=== PATIENT | male | born 1935 | race Caucasian/White ===

== ENCOUNTER 2018-04-02 19:35 | Inpatient (IN) | payer MEDICARE, OTHER ==
[2018-04-02] MEDS ORDERED: NS 0.9% 1000 ML* 1,000 ML IV ONE (19:51)
--- NOTE | 2018-04-02 20:02 | ED ---
GI/ HPI - HPI Summary HPI Summary: This patient is an 82 year old M presenting to [facility] with a chief complaint of rectal bleeding since 6 hours ago. The patient has had 3 episodes of heavy bleeding he is still leaking blood. He states he has had minor rectal bleeds in the past but not to this extent. He experienced syncope while his was driving him back from [place]. He also experienced syncope in triage. He reports weakness, chills, some dizziness. He has history of NE and has a stent placed. He takes 25 mg of metoprolol and 162 mg Aspirin daily. 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 - Onset/Duration: Started Hours Ago Timing: Intermittent Severity: Mild Current Severity: Mild Pain Intensity: 0 Associated Signs and Symptoms: Positive: Pallor, Dizziness, Weakness, Syncope, Bright Red Blood w/Stool, Blood w/Stool Aggravating Factor(s): Nothing Alleviating Factor(s): Nothing - Risk Factors GI Bleed Risk Factor(s): ASA - Allergy/Home Medications Allergies/Adverse Reactions: Allergies Allergy/AdvReac Type Severity Reaction Status Date / Time MS Penicillins [Penicillins] Allergy Severe Itching Verified 01/12/17 14:11 PMH/Surg Hx/FS Hx/Imm Hx Endocrine/Hematology History: Denies: Hx Diabetes Cardiovascular History: Reports: Hx Myocardial Infarction Denies: Hx Hypertension, Hx Pacemaker/ICD History: Denies: Hx Renal Disease Sensory History: Denies: Hx Hearing Aid Psychiatric History: Denies: Hx Panic Disorder - Surgical History Surgery Procedure, Year, and Place: CATARACTS - DIMITRIOS. CARDIAC STENTS - Infectious Disease History: No Infectious Disease History: Denies: Traveled Outside the [place] in Last 30 Days - Family History Known Family History: Positive: Cardiac Disease - Social History Alcohol Use: Daily Substance Use Type: Reports: None Review of Systems Positive: Chills Positive: other - Rectal bleed Positive: Weakness, Syncope All Other Systems Reviewed And Are Negative: Yes Physical Exam - Summary Physical Exam Summary: VITAL SIGNS: Reviewed. GENERAL: Patient is a well-developed and nourished MALE who is lying comfortable in the stretcher. Patient is not in any acute respiratory distress. HEAD AND FACE: No signs of trauma. No ecchymosis, hematomas or skull depressions. No sinus tenderness. EYES: PERRLA, EOMI x 2, No injected conjunctiva, no nystagmus. EARS: Hearing grossly intact. Ear canals and tympanic membranes are within normal limits. MOUTH: Oropharynx within normal limits. NECK: Supple, trachea is midline, no adenopathy, no JVD, no carotid bruit, no c- spine tenderness, neck with full ROM. CHEST: Symmetric, no tenderness at palpation LUNGS: Clear to auscultation bilaterally. No wheezing or crackles. CVS: Regular rate and rhythm, S1 and S2 present, no murmurs or gallops appreciated. ABDOMEN: Soft, non-tender. No signs of distention. No rebound no guarding, and no masses palpated. Bowel sounds are normal. EXTREMITIES: FROM in all major joints, no edema, no cyanosis or clubbing. NEURO: Alert and oriented x 3. No acute neurological deficits. Speech is normal and follows commands. SKIN: Dry and warm. Pale. RECTAL: Maroon colored blood on examining finger. No active bleed. No masses. Triage Information Reviewed: Yes Vital Signs On Initial Exam: Initial Vitals Temp Pulse Resp BP Pulse Ox 96.7 F 99 18 129/74 100 04/02/18 19:38 04/02/18 19:38 04/02/18 19:38 04/02/18 19:38 04/02/18 19:38 Vital Signs Reviewed: Yes Diagnostics - Vital Signs Vital Signs Temp Pulse Resp BP Pulse Ox 04/02/18 19:38 96.7 F 99 18 129/74 100 - Laboratory Result Diagrams: 04/02/18 20:01 04/02/18 20:01 Lab Statement: Any lab studies that have been ordered have been reviewed, and results considered in the medical decision making process. - Radiology CXR Radiology Interpretation Completed By: ED Physician Summary of Radiographic Findings: No acute process. Pending official radiologist report. - EKG 2009 Cardiac Rate: Bradycardia EKG Rhythm: Sinus Bradycardia - 48 BPM Summary of EKG Findings: J-point elevation. No ischemic changes. GIGU Course/Dx - Course Course Of Treatment: This patient is an 82 year old M presenting to [facility] with a chief complaint of rectal bleeding since 6 hours ago. Physical exam revealed maroon blood in the rectum. EKG showed sinus bradycardia and J-point elevation and Chest X-ray were unremarkable for cardiopulmonary problems. Stephany Gresham, Hospitalist was consulted and she accepted the patient to be admitted. This plan was discussed with the patient and he was agreeable with this plan. [facility] [id number]. - Diagnoses Provider Diagnoses: Rectal bleed, Lower GI bleed - Physician Notifications Discussed Care Of Patient With: Stephany Gresham - Hospitalist Instructed by Provider To: Admit As Inpatient Discharge - Sign-Out/Discharge Documenting (check all that apply): Patient Departure - Admit - Discharge Plan Condition: Stable Disposition: ADMITTED TO [facility] Referrals: Linda Amos MD [Primary Care Provider] - - Attestation Statements Document Initiated by Scribe: Yes Documenting Scribe: Demian Gonzalez Provider For Whom Forrest is Documenting (Include Credential): Robert Aggarwal MD Scribe Attestation: Demian De Jesus scribed for Robert Aggarwal MD on 04/02/18 at 2039. Status of Scribe Document: Ready
[2018-04-02 20:15] LABS: ABS Basophils 0 10^3/ul (0-0.2); ABS Eosinophils 0.1 10^3/ul (0-0.6); ABS Lymphocytes 1.2 10^3/ul (1.0-4.8); ABS Monocytes 0.7 10^3/ul (0-0.8); ABS Neutrophils 10.9 10^3/ul (1.5-7.7); ABS Nucleated RBC 0 10^3/ul; Hematocrit 39 % (42-52); Lymphocyte % 9.4 %; Mean Corpuscular HGB Conc 33 g/dl (31-36); Mean Corpuscular Hemoglobin 32 pg (27-31); Mean Corpuscular Volume 96 fL (80-94); Mean Platelet Volume 7.7 fL (7.4-10.4); Nucleated Red Blood Cells % 0; Platelet Count 262 10^3/ul (150-450); Red Blood Count 4.07 10^6/ul (4.00-5.40); Red Cell Distribution Width 13 % (10.5-15); White Blood Count 13.1 10^3/ul (3.5-10.8)
[2018-04-02 20:28] LABS: Activated Partial Thrombo Time 30.2 seconds (26.0-36.3)
[2018-04-02 20:31] LABS: Albumin 3.6 g/dL (3.2-5.2); Albumin/Globulin Ratio 1.6 (1-3); BUN/Creatinine Ratio 22.1 (8-20); Calcium 8.8 mg/dL (8.6-10.3); EGFR Non-African American 50.3 (>60); Globulin 2.3 g/dL (2-4); Potassium 4.6 mmol/L (3.5-5.0); Total Bilirubin 0.5 mg/dL (0.2-1.0); Total Protein 5.9 g/dL (6.4-8.9)
[2018-04-02] MEDS ORDERED: Acetaminophen TAB* 325 MG PO PRN (20:43)
[2018-04-02] MEDS: NS 0.9% 1000 ML* 1,000 ML IV SCH (21:42)
--- NOTE | 2018-04-02 21:56 | ADMNOTE ---
Subjective Date of Service: 04/02/18 Interval History: code status full this is admission h/p source from surrogate/hcp hpi this is a 82 yr old wm with hx of cad with one stent on asa 162 was brought in to hospital after he had three episodes of brbpr. pt was at his daughter's house when the first episode occurred ---> pt declined to go to any hospitals in [facility] and decided to bring him back. he had an episode of briefly loc in the car ---> called on his name with no response ---> pulled to roadside and tapped on his chest ---> responded in that way---> similar episode recurred when he was in the triage. pt knows he is in a hospital but was wrong reg the yr/month on initial encounter. his intial hg was 13 trop was neg ekg showed non specific st t changes seen on prior ekg. 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 ( pt says his chest pain has been epigastric intermittantly for the past few days. pt has at least mild dementia and did not complain chest pain initially on admission. not sure he is a good historian when is not around. is the hcp and surrogate ) pt was transferred to icu for further monitering. his repeat hg down to 9.5 and trop went to 32 at 530 am ---> was called reg this close to 6 am. called cardio still await for their response. called gi Dr Al will do a flex sig ( two tap water enema ordered to be given ) while full colonoscopy with possible need for nj to feed laxative later ( Dr Al will sign out to day MANUEL he reg this ) was informed reg the above and called in daughter from [place]. 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 dad at age of 60 due to kidney ca mom + mi at age late 60s Review of Systems - Measurements Intake and Output: Intake and Output Last 24 Hours 03/31/18 04/01/18 04/02/18 04/03/18 06:59 06:59 06:59 06:59 Intake Total 1000 Balance 1000 Weight 135 lb Intake: IV Fluids 1000 - Review of Systems General Comments: pertinent as per hpi Objective Active Medications: Acetaminophen (Tylenol Tab*) 650 mg PO Q4H PRN PRN Reason: FEVER/PAIN Atorvastatin Calcium (Lipitor*) 20 mg PO 2100 ROSE Cyanocobalamin (Vitamin B12 Tab*) 1,000 mcg PO DAILY ROSE Sodium Chloride (Ns 0.9% 1000 Ml*) 1,000 mls @ 100 mls/hr IV PER RATE ROSE Last Admin: 04/02/18 21:42 Dose: 100 mls/hr Metoprolol Succinate (Toprol Xl Tab*) 12.5 mg PO DAILY ROSE Pantoprazole Sodium (Protonix Iv*) 40 mg IV Q24H ROSE Vital Signs - 8 hr 04/02/18 04/02/18 04/02/18 19:38 20:02 20:04 Temperature 96.7 F Pulse Rate 99 57 54 Respiratory 18 19 23 Rate Blood Pressure 129/74 182/72 (mmHg) O2 Sat by Pulse 100 100 100 Oximetry 04/02/18 04/02/18 04/02/18 20:34 21:00 21:03 Temperature Pulse Rate 46 174 83 Respiratory 17 19 20 Rate Blood Pressure 110/59 138/74 (mmHg) O2 Sat by Pulse 100 84 91 Oximetry 04/02/18 21:33 Temperature Pulse Rate 66 Respiratory 19 Rate Blood Pressure 137/67 (mmHg) O2 Sat by Pulse 95 Oximetry Oxygen Devices in Use Now: None Appearance: in mild distress Eyes: No Scleral Icterus, PERRLA Ears/Nose/Mouth/Throat: NL Teeth, Lips, Gums, Clear Oropharnyx, Mucous Membranes Moist Neck: NL Appearance and Movements; NL JVP, Trachea Midline, No Thyroid Enlargement, Masses Respiratory: Symmetrical Chest Expansion and Respiratory Effort, Clear to Auscultation Cardiovascular: NL Sounds; No Murmurs; No JVD, RRR, - - no anterior chest tenderness upon pressure Abdominal: NL Sounds; No Tenderness; No Distention Extremities: No Edema, - - able to raise ue and le against gravity b/l Skin: No Rash or Ulcers, - - pale looking Neurological: - - awake disoriented cranial n 2-12 grossly intact motor ue/le b/ l 5/5 sensory ue/le 2/2 plantar reflex downwards Result Diagrams: 04/03/18 05:30 04/03/18 05:30 EKG Data: ekg ns st - t elevation mi anterior leads Assess/Plan/Problems-Billing Assessment: 82 yr old wm with hx of cad mild to mod dementia on only asa 162 daily was brought into er due to brbpr for one day hx. pt was found to have st t elevation mi with trop went from 0---> 3.5--->13.5--->32 as of 530 am despite of medical therpay with iv lopressor and nitropaste. his hg went from 13-->12--- >9.6 at 530 am - Patient Problems (1) Additional heart attack (anterolateral wall) Current Visit: Yes Status: Acute Code(s): I21.09 - STEMI INVOLVING OTH CORONARY ARTERY OF ANTERIOR WALL SNOMED Code(s): 14197917 Comment: pt has st t elevation mi on the anterior leads but unable to have cath due to concurrent lower gib - cardio eval greatly appreciated - on lopressor and nitro - on home asa 162 ( had one dose prior to admission ) but not on asa here - risks of severe mi/arrythemia d/w who is the hcp (2) Lower GI bleed Current Visit: Yes Status: Acute Code(s): K92.2 - GASTROINTESTINAL HEMORRHAGE, UNSPECIFIED SNOMED Code(s): 91683168 Comment: gi service greatly appreciated flex sig planned this am may move to full colonoscopy if non diagnostic trend h/h (3) Dementia Current Visit: Yes Status: Acute Code(s): F03.90 - UNSPECIFIED DEMENTIA WITHOUT BEHAVIORAL DISTURBANCE SNOMED Code(s): 12837402 Comment: mild to mod so far slight agitated could be related to his medical condition supportive care (4) Hyperlipidemia Current Visit: Yes Status: Acute Code(s): E78.5 - HYPERLIPIDEMIA, UNSPECIFIED SNOMED Code(s): 70821314 Comment: lft wnl ck fasting lipid (5) SIRS (systemic inflammatory response syndrome) Current Visit: Yes Status: Acute Code(s): R65.10 - SIRS OF NON-INFECTIOUS ORIGIN W/O ACUTE ORGAN DYSFUNCTION SNOMED Code(s): 875440301 Comment: elevated wbc but not on inital wbc ---> that could be related to his massive mi no abx yet (6) Acute anemia Current Visit: Yes Status: Acute Code(s): D64.9 - ANEMIA, UNSPECIFIED SNOMED Code(s): 008534275 Comment: related to his lgib but his hg at 530 am is still 9.6 (7) DVT prophylaxis Current Visit: Yes Status: Acute Code(s): VDS6488 - SNOMED Code(s): 566185954 Comment: scd
[2018-04-02] MEDS: Pantoprazole IV* 40 MG IV SCH (23:18)
[2018-04-02] MEDS ORDERED: Iodixanol* (CONTRAST) 320 MG/ML 100 ML SDV IV ONE (23:38)
[2018-04-03 00:28] LABS: Urine Appearance Clear; Urine Bilirubin Negative (Negative); Urine Blood Negative (Negative); Urine Color Straw; Urine Glucose 1+(50 mg/dL) (Negative); Urine Ketones 1+ (Negative); Urine Nitrite Negative (Negative); Urine Protein Negative (Negative); Urine Specific Gravity 1.013 (1.010-1.030); Urine Urobilinogen Negative (Negative)
[2018-04-03 02:59] LABS: Hematocrit 35 % (42-52)
[2018-04-03] MEDS ORDERED: Nitroglycerin 2% OINT* 1 GM PAK TOPICAL STA (03:27)
[2018-04-03] MEDS ORDERED: Nitroglycerin 2% OINT* 1 GM PAK ONE (03:28)
[2018-04-03] MEDS ORDERED: Metoprolol Tartrate IV* 1 MG/ML 5 ML VIAL IV STA (03:39)
[2018-04-03] MEDS ORDERED: PEG 3000 GI LAVAGE* 1 GALLON PO ONE (04:07)
[2018-04-03] MEDS: Nitroglycerin 2% OINT* 1 GM PAK TOPICAL SCH ×2 (04:13→11:44)
[2018-04-03] MEDS ORDERED: Metoprolol Tartrate IV* 1 MG/ML 5 ML VIAL IV ONE (04:29)
[2018-04-03] MEDS ORDERED: Metoprolol Tartrate IV* 1 MG/ML 5 ML VIAL ONE (04:39)
[2018-04-03 05:42] LABS: ABS Basophils 0 10^3/ul (0-0.2); ABS Eosinophils 0 10^3/ul (0-0.6); ABS Lymphocytes 0.6 10^3/ul (1.0-4.8); ABS Monocytes 0.7 10^3/ul (0-0.8); ABS Neutrophils 13.1 10^3/ul (1.5-7.7); ABS Nucleated RBC 0 10^3/ul; Eosinophil % 0 %; Hematocrit 29 % (42-52); Hemoglobin 9.6 g/dl (14.0-18.0); Lymphocyte % 3.9 %; Mean Corpuscular HGB Conc 33 g/dl (31-36); Mean Corpuscular Hemoglobin 32 pg (27-31); Mean Corpuscular Volume 97 fL (80-94); Mean Platelet Volume 7.8 fL (7.4-10.4); Nucleated Red Blood Cells % 0.1; Platelet Count 196 10^3/ul (150-450); Red Cell Distribution Width 13 % (10.5-15); White Blood Count 14.4 10^3/ul (3.5-10.8)
[2018-04-03 05:58] LABS: BUN/Creatinine Ratio 23.3 (8-20); Calcium 6.6 mg/dL (8.6-10.3); HDL Cholesterol 34.5 mg/dL; Potassium 3.4 mmol/L (3.5-5.0)
[2018-04-03 06:29] LABS: TSH (Thyroid Stimulating Horm) 0.48 mcIU/mL (0.34-5.60)
[2018-04-03 06:31] LABS: Free T4 1.04 ng/dL (0.61-1.12)
[2018-04-03] MEDS ORDERED: Calcium Gluconate INJ* 1 GM in NS 0.9% 50 ML* 50 ML IVPB ONE (07:05)
--- NOTE | 2018-04-03 07:09 | CONS ---
CC: Dr. Mckeon; Dr. Ashby. CARDIOLOGY CONSULTATION: DATE OF CONSULT: 04/03/18. CONSULTING PROVIDER: Dr. Stephany Gresham. REASON FOR EVALUATION: STEMI. HISTORY OF PRESENT ILLNESS: I was asked to see Mr Jo on an urgent basis by Dr. Gresham. He was admitted because of new onset GI bleeding yesterday. He apparently was at a family event and noted that his pants were wet and was found to have bright red blood. His decided to drive him home. On the way home, he apparently lost consciousness twice but was easily arousable with her twice. He was brought to the emergency room and initially had an EKG that showed that showed sinus bradycardia with no acute injuries. He was admitted to the [facility] and apparently had troponins checked. A troponin was added on to the 2105 sample which 0.0. A repeat troponin at 1:21 was 3.68, at 2:51 was 13.31. He had a repeat EKG obtained at 2:[address] elevations anteriorly and new Q waves in V1 through V3. He also had recurrent bright red blood per rectum. The patient has mild memory impairment and is a poor historian. When I saw him, he did admit to having some substernal chest pressure, but he said it has been coming and going for some time. He made it sound as though has been several days but he had not told his about it. He was given nitroglycerin paste 1 inch and also IV Lopressor 5 mg and thought that he had some improvement in his discomfort. A repeat EKG was obtained, at 3 :45 which showed minimal improvement in ST elevations. PAST MEDICAL HISTORY: CAD NH in 1988 and he had a 90% right coronary stenosis only, which was treated with angioplasty. PCI of LAD and LCX 2003, and and subsequent Brachytherapy 2004 to LAD hypertension previous coronary disease with remote stenting many years ago in [place] according to the patient. He denies diabetes. history of tobacco use, discontinued 30 years ago. GI bleeding back in 2010, had a colonoscopy back then for rectal bleeding. 05/24/10 did reveal 2+ diverticulosis with large diverticula without any haustral changes. He had a small polypoid nodule removed, had 2+ diverticulosis , a 2 to 3 cm nodule was noted in the cecal cap and removed and it was felt that the impression was moderate left colon diverticulosis without any haustral changes, polypoid nodules, internal hemorrhoids, mild bright red blood which seem to fit internal hemorrhoids. upper GI series on 01/03/18 for dysphagia and was found to have a small Zenker' s diverticulum unremarkable upper GI. He apparently had had stenting in 2003 to the LAD and circumflex. cardiac catheterization on 07/04/04. Because of increasing angina and anterior wall ischemia, he had a repeat CATH. 80% restenosis within the mid LAD and mild diffuse in-stent restenosis within the stent. The left circumflex was without evidence of stenosis, the ramus was patent and the right coronary artery was not injected, it was known to be occluded at the prior catheterization. He was scheduled for radiation therapy to the LAD restenosis subsequently, although I do not have those results. prostatic hyperplasia, bladder outlet, urethral dilatation, and TURP in June 2006. past medical history based on his records from 12/09/03 reports: atrial fibrillation in 1993, he had a normal echocardiogram, TSH at that time by report. PAST SURGICAL HISTORY: Back then included right cataract in 1998, left cataract in 2000, April 1993 atrial fibrillation, and the NH in 1988. ALLERGIES: Include PENICILLIN with a rash, SULFA with fever in 1992, but tolerated in 2002; PAXIL with decreased sexual drive. He has a history of tobacco use, discontinued in 1973. He is a retired banker. He is . He has a son and a daughter. He just came back visiting his children in [place]. FAMILY HISTORY: Includes a brother who had heart disease and had bypass surgery. Mother at age 64. His father of prostate cancer at 55. PHYSICAL EXAM: On physical exam, he is a well developed, well nourished gentleman, in no apparent distress, atraumatic, normocephalic. Extraocular muscles are intact. Sclera anicteric. Pulse of 94, blood pressure of 142/82, no significant JVD, carotids 2+ without bruits. Cardiac exam: S1 and S2 with a 2/6 systolic ejection murmur at the base, S3 gallop and 2/6 holosystolic murmur at the apex. Chest was clear, no CVAT. Abdomen: Bowel sounds present, non-tender. No hepatosplenomegaly. Femoral pulses intact with left femoral bruits. Distal pulses, posterior tibialis present, dorsalis pedis were diminished. He knew he was in hospital. He knew the date, but not the year. DIAGNOSTIC STUDIES/LAB DATA: Sodium 139, potassium 4.6, BUN of 30, creatinine 1.36, lactic acid 2.7 and 2.3 and troponins, first troponin at 1999 was 0, second troponin at 1:21 was 3.68 and a third at 2:51 was 13.31. The lactic acid was 2.7 at 2100 and 2.3 at 1:21. White count 12.1, hemoglobin 13, hematocrit 39 at 2000, and 2:51 a.m. on 04/03/18 hemoglobin was 12, hematocrit was 35, EKGs were described as above. Chest x-ray is pending. CT of the abdomen from 04/02/18 revealed no acute findings. No hydronephrosis. Evidence of prior granulomatous disease, limited by motion. IMPRESSION AND PLAN: My impression is that Mr. Jo appears to be having acute anterior myocardial infarction in the setting of a gastrointestinal bleed. I have discussed the case at length with him, his at the bedside and Dr. Gresham. I also spoken to Dr. Singh of Interventional Cardiology and Dr. Ashby of GI. The patient is in a very high risk medical situation with poor prognosis given concomitant GI bleeding of unknown etiology as well as acute NH. He is at high risk for cardiac morbidity, mortality in the next few hours and it was discussed with his . However, we have limited medical options and interventional options due to his GI bleeding. For the time being, we will proceed as follows: 1. We will continue with nitrates and beta blockade as tolerated. 2. He will be transferred to the ICU. 3. I asked the patient and his to discuss his wishes regarding resuscitation. Currently, he is a full code, but this is a life threatening situation which may be associated with cardiac arrest. She is aware of the dire circumstances. 4. GI is planning on doing a prep and a colonoscopy to evaluate for a source of bleeding. If the source of bleeding can be identified and controlled, we could consider anticoagulation and transfer to the label stamper. Given his history of diffusely diseased LAD, it is possible that the options for percutaneous revascularization will be limited. 5. I also discussed that the longer we will wait the will less likely he is to benefit from revascularization given his ongoing ischemia. Greater than 70 minutes critical care was spent with the patient from 3:20 to 4: 30 a.m. and ongoing coordinating care. [id number]/[facility] #: [id number] PATTIE
[2018-04-03] MEDS ORDERED: KCL 20 MEQ/100 ML IVPREMIX* 20 MEQ/100 ML BAG IV ONE (07:40)
[2018-04-03] MEDS: NS 0.9% 1000 ML* 1,000 ML IV SCH ×2 (08:23→14:53)
[2018-04-03] MEDS ORDERED: Cyanocobalamin TAB* 500 MCG PO SCH (09:00)
[2018-04-03] MEDS ORDERED: Metoprolol Succinate XL TAB* 25 MG PO SCH ×2 (09:00)
--- NOTE | 2018-04-03 09:17 | CONS ---
CC: Dr. Jagdeep Mckeon and Dr. Stephany Gresham. CONSULTATION REPORT: DATE OF CONSULT: 04/03/18 REASON FOR CONSULTATION: Hematochezia. HISTORY OF PRESENT ILLNESS: This is a pleasant 82-year-old male with history of dementia, coronary artery disease and left-sided diverticulosis coli who was in his normal state of health at a family event yesterday and then noticed without pain that there was some bright red blood on his pants. He was quite lethargic on the drive home, perhaps even losing consciousness per the , but he was easily arousable via voice. He was brought to the emergency room. On initial presentation, it was thought this was purely a GI bleed. His hemoglobin was 13 and vitals stable. Initial EKG showed sinus bradycardia, however, subsequent EKGs raised concern for possible ongoing evolving ischemia. The cardiology service was brought in to see the patient. The HPI is limited by the patient's mental status. The was able to provide additional history including that he had a colonoscopy in [address] Marsh. Review of the report showed he had left-sided diverticulosis coli and the indication for the procedure was bright red blood per rectum. Denies any abdominal pain, no nausea or emesis, no hematemesis. Currently, denies lightheadedness or dizziness. No skin rashes or lesions. Denies weight loss, weight gain. Denies chest pain or dyspnea. Remainder of the 14-point review of systems was grossly negative. He does use a daily aspirin. No other NSAIDs. PAST MEDICAL HISTORY: Includes coronary artery disease with stenting and hypertension. PAST SURGICAL HISTORY: Includes colonoscopy 2010 with left-sided diverticulosis coli and nodular cecal cap and also internal hemorrhoids. He had an upper GI series on 01/03/18 for dysphagia and does have a small Zenker's diverticulum. Last cardiac catheterization was June of 2004. FAMILY HISTORY: Paternal prostate cancer. No history of GI cancer or malignancy. ALLERGIES: Include PENICILLIN, SULFA, PAXIL. SOCIAL HISTORY: Prior tobacco use. REVIEW OF SYSTEMS: Reminder of 14-point review of systems grossly negative. PHYSICAL EXAMINATION: General: Ill-appearing male, in no acute distress. HEENT: Atraumatic, normocephalic. Pupils are equal, round. Cardiovascular: Tachycardic. S1, S2. Respiratory: Diminished at the base. Abdomen: Soft, nontender, nondistended. Bowel sounds positive. Extremities: No clubbing, no cyanosis, no edema. LABORATORY DATA/DIAGNOSTIC STUDIES: Hemoglobin on admission 13. Current hemoglobin 9.6. WBC count 14.4. INR 1. Chemistry: Creatinine 0.90, on admission 1.36. Current troponin I 32.18. CT of the abdomen and pelvis showed no acute findings. Evidence of prior granulomatous disease. ASSESSMENT AND PLAN: This is an 82-year-old male with acute blood loss anemia, hematochezia. 1. Acute blood loss anemia. 2. Acute anterior myocardial infarction. 3. Dementia. RECOMMENDATIONS: Ideally, I would have liked to been able to fully prep the patient with GoLYTELY to better visualize smaller lesions such an AVM. Given the acuity the situation, I discussed the case with Dr. Mckeon and decision was made to proceed with endoscopic evaluation. Will start with flex sig given his left-sided diverticulosis coli on prior colonoscopy, jonah red blood and acuity. If no evidence or source of bleeding is identified on this, we will discuss placing NG tube with full GoLYTELY prep and EGD to rule for brisk upper source of bleeding. In the meantime, continue to cycle H and H q.6 hours, keep 2 to 3 units of PRBCs on hold, transfusion per ICU team, keep the head of bed elevated above 30 degrees at all times, oxygen therapy as needed and recommend at least b.i.d. proton pump inhibitor therapy. [id number]/[facility] #: [id number] MTDD
[2018-04-03] MEDS ORDERED: Norepinephrine VIAL* 1 MG/ML 4 ML VIAL ONE (10:33)
--- NOTE | 2018-04-03 10:43 | PN ---
Date of Service: 04/03/18 - [facility] note Critical Care Services: Pt seen and examined at bedside. Admission records reviewed. 82 y o m with h/o dementia, CAD with diffuse disease, s/p stent in [place] in 2005, on ASA 162, was brought in to hospital after he had three episodes of brbpr. Pt was at his daughter's house for [place] when the first episode occurred, pt declined to go to any hospitals in [place] and decided to bring him back, had an episode of brief LOC in the car - called on his name with no response - pulled to roadside and tapped on his chest, he responded , had similar episode recurred when he was in the triage. His initial EKG showed sinus bradycardia with no acute changes, his initial hg was 13, trop was neg. Repeat trop came back at 3.[address] elevation in anterior leads. Cardiology was consulted. His Hb trended down, he had guiac positive stools, GI was also consulted, Interventional cardiology was consulted and cath couldnot be performed secondary to GI bleed. His hg continued to drop from 13 at 8 pm on 04/02 to 12 at 04/03 2 am. Pt has admitted to mild epigastric intermittently for the past few days Pt received Lopressor iv 5 mg given tachycardia and nitro paste for his mild chest discomfort. Pt was transferred to ICU for close monitoring. Repeat hg trended down to 9.5 and trop increased to 32 at 530 am. 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 could not make any decision, daughter arrived this morning. 2 units pRBC was given this am. Pt also receiving IVF at 150cc/hr, able to tolerate. Pt still continues to be hypotensive. All: PMHx, PSx, FHx, Social Hx, Medications, Labs, vitals were reviewed Vital Signs: Temp Pulse Resp BP SpO2 FiO2 98.6 F 103 20 82/59 97 04/03/18 04:31 04/03/18 07:31 04/03/18 07:57 04/03/18 07:31 04/03/18 07:31 Physical Exam: Gen: Pt in NAD, is restless HEENT: PERRLA Lungs: Clear to auscultation, diminished at bases Cardiac: S1, S2+, tachycardic Abdomen: Soft, BS+ Extremities: No edema Neuro: Alert, awake, confused, no focal deficits Fluid Balance (Past 24 Hours): I= 1000 O= 350 Net 650 Intake & Output 04/01/18 04/02/18 04/03/18 04/04/18 06:59 06:59 06:59 06:59 Intake Total 1386 1000 Output Total 400 350 Balance 986 650 Weight 133 lb 9.602 oz Intake: IV Fluids 1000 1000 IVPB 146 NS 146 Oral 240 Output: Urine 400 Liquid Stool 350 Other: # Bowel Movements 1 Estimated Stool Amount Medium Labs: Laboratory Results - last 24 hr 04/02/18 04/02/18 04/02/18 20:01 20:01 20:01 WBC 13.1 H RBC 4.07 Hgb 13.0 L Hct 39 L MCV 96 H MCH 32 H MCHC 33 RDW 13 Plt Count 262 MPV 7.7 Neut % (Auto) 83.7 Lymph % (Auto) 9.4 [place] % (Auto) 5.6 Eos % (Auto) 1.0 Baso % (Auto) 0.3 Absolute Neuts (auto) 10.9 H Absolute Lymphs (auto) 1.2 Absolute Monos (auto) 0.7 Absolute Eos (auto) 0.1 Absolute Basos (auto) 0 Absolute Nucleated RBC 0 Nucleated RBC % 0 INR (Anticoag Therapy) 1.00 APTT 30.2 Sodium 139 Potassium 4.6 Chloride 107 Carbon Dioxide 28 Anion Gap 4 BUN 30 H Creatinine 1.36 H Est GFR ( Amer) 60.9 Est GFR (Non-Af Amer) 50.3 BUN/Creatinine Ratio 22.1 H Glucose 158 H Lactic Acid Calcium 8.8 Total Bilirubin 0.50 AST 19 ALT 17 Alkaline Phosphatase 48 Troponin I 0.00 Total Protein 5.9 L Albumin 3.6 Globulin 2.3 Albumin/Globulin Ratio 1.6 Triglycerides Cholesterol LDL Cholesterol HDL Cholesterol Vitamin B12 TSH Free T4 Urine Color Urine Appearance Urine pH Ur Specific [place] Urine Protein Urine Ketones Urine Blood Urine Nitrate Urine Bilirubin Urine Urobilinogen Ur Leukocyte Esterase Urine Glucose Blood Type Antibody Screen Crossmatch 04/02/18 04/02/18 04/03/18 20:01 21:06 00:12 WBC RBC Hgb Hct MCV MCH MCHC RDW Plt Count MPV Neut % (Auto) Lymph % (Auto) [place] % (Auto) Eos % (Auto) Baso % (Auto) Absolute Neuts (auto) Absolute Lymphs (auto) Absolute Monos (auto) Absolute Eos (auto) Absolute Basos (auto) Absolute Nucleated RBC Nucleated RBC % INR (Anticoag Therapy) APTT Sodium Potassium Chloride Carbon Dioxide Anion Gap BUN Creatinine Est GFR ( Amer) Est GFR (Non-Af Amer) BUN/Creatinine Ratio Glucose Lactic Acid 2.7 H* Calcium Total Bilirubin AST ALT Alkaline Phosphatase Troponin I Total Protein Albumin Globulin Albumin/Globulin Ratio Triglycerides Cholesterol LDL Cholesterol HDL Cholesterol Vitamin B12 TSH Free T4 Urine Color Straw Urine Appearance Clear Urine pH 6.0 Ur Specific [place] 1.013 Urine Protein Negative Urine Ketones 1+ A Urine Blood Negative Urine Nitrate Negative Urine Bilirubin Negative Urine Urobilinogen Negative Ur Leukocyte Esterase Negative Urine Glucose 1+(50 mg/dl) A Blood Type O Positive Antibody Screen Negative Crossmatch See Detail 04/03/18 04/03/18 04/03/18 01:21 01:21 02:51 WBC RBC Hgb Hct MCV MCH MCHC RDW Plt Count MPV Neut % (Auto) Lymph % (Auto) [place] % (Auto) Eos % (Auto) Baso % (Auto) Absolute Neuts (auto) Absolute Lymphs (auto) Absolute Monos (auto) Absolute Eos (auto) Absolute Basos (auto) Absolute Nucleated RBC Nucleated RBC % INR (Anticoag Therapy) APTT Sodium Potassium Chloride Carbon Dioxide Anion Gap BUN Creatinine Est GFR ( Amer) Est GFR (Non-Af Amer) BUN/Creatinine Ratio Glucose Lactic Acid 2.3 H* Calcium Total Bilirubin AST ALT Alkaline Phosphatase Troponin I 3.68 H* 13.31 H* Total Protein Albumin Globulin Albumin/Globulin Ratio Triglycerides Cholesterol LDL Cholesterol HDL Cholesterol Vitamin B12 TSH Free T4 Urine Color Urine Appearance Urine pH Ur Specific [place] Urine Protein Urine Ketones Urine Blood Urine Nitrate Urine Bilirubin Urine Urobilinogen Ur Leukocyte Esterase Urine Glucose Blood Type Antibody Screen Crossmatch 04/03/18 04/03/18 04/03/18 02:51 05:30 05:30 WBC 14.4 H RBC 3.00 L Hgb 12.0 L 9.6 L Hct 35 L 29 L MCV 97 H MCH 32 H MCHC 33 RDW 13 Plt Count 196 MPV 7.8 Neut % (Auto) 91.0 Lymph % (Auto) 3.9 [place] % (Auto) 4.8 Eos % (Auto) 0 Baso % (Auto) 0.3 Absolute Neuts (auto) 13.1 H Absolute Lymphs (auto) 0.6 L Absolute Monos (auto) 0.7 Absolute Eos (auto) 0 Absolute Basos (auto) 0 Absolute Nucleated RBC 0 Nucleated RBC % 0.1 INR (Anticoag Therapy) APTT Sodium 140 Potassium 3.4 L Chloride 113 H Carbon Dioxide 21 L Anion Gap 6 BUN 21 Creatinine 0.90 Est GFR ( Amer) 98.0 Est GFR (Non-Af Amer) 81.0 BUN/Creatinine Ratio 23.3 H Glucose 130 H Lactic Acid Calcium 6.6 L Total Bilirubin AST ALT Alkaline Phosphatase Troponin I 32.18 H* Total Protein Albumin Globulin Albumin/Globulin Ratio Triglycerides 40 Cholesterol 86 LDL Cholesterol 44 HDL Cholesterol 34.5 Vitamin B12 1102 H TSH 0.48 Free T4 1.04 Urine Color Urine Appearance Urine pH Ur Specific [place] Urine Protein Urine Ketones Urine Blood Urine Nitrate Urine Bilirubin Urine Urobilinogen Ur Leukocyte Esterase Urine Glucose Blood Type Antibody Screen Crossmatch Studies: CT abdomen: NO acute findings ECHO: VSD+, full report pending EKG: Acute ST- elevation in ant leads Nutrition: NPO Impression: 82 y o m with h/o CAD s/p stent placement, admitted for acute GI bleed, unresponsiveness, found to have acute [place] 1. Acute lower GI bleed 2. Acute STEMI 3. Hypotension from acute GI blood loss 4. Elevated troponins 5. Acute blood loss anemia 6. AMS sec to hypotension in setting of dementia 7. H/o CAD 8. VSD Plan: 1. Neuro: Confusion: Sec to hypotension from blood loss. Receiving Ativan prn. Keep head of bed elevated. Aspiration precuations 2. CVS: Hypotension sec to acute blood loss and cardiogenic shock. 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 No active bleeding. No involvement of rt hemicolon. Concern for rpt bleeding remains. Unable to have cardiac cath sec to concern with GI bleed as he would require anticoagulants and antiplatelets post cath. He is high risk for cardiac surgery as well. He was on betablockers and Nitro this am which were held due to hypotension. Cardiology consultation appreciated. Will avoid vasopressors as it can worsen his cardiac condition. 3.Resp: Not hypoxic, pt removed pulse ox monitoring. Will check intermittently. 4. GI: Acute lower GI bleed, underwent colonoscopy this am at bedside, Dilefouy lesion noted in rectum. No active bleeding. No involvement of rt hemicolon. Concern for rpt bleeding remains. Lesion is not amenable to endoscopic or surgical intervention. c/w PPI. Monitor H&H closely. NPO given GI bleed 5. Haem: Anemia from acute bl loss from lower GI bleeding. Received 2 units pRBC. Receiving IV fluids. Will monitor H&H closely. 6. Renal: S/p Brown placement to monitor UO and to avoid skin break down. Hypocalcemia and hypokalemia were repleted. Monitor BMP closely 7. Endo: No issues. 8. Musculoskeletal: Pt restless and trying to sit up in bed, will use Ativan as needed. Pt is DNR/DNI, comfort care and daughter at bedside and were updated. MOLST forms signed. [facility] obtained. Critical Care Time: 60 min excluding procedures.
[2018-04-03] MEDS ORDERED: LORazepam INJ* 2 MG/ML 1 ML VIAL ONE (11:02)
[2018-04-03] MEDS ORDERED: Haloperidol INJ IV/IM* 5 MG/ML AMP IV SLOW PU PRN ×2 (11:25→11:40)
[2018-04-03] MEDS ORDERED: LORazepam INJ* 2 MG/ML 1 ML VIAL IV PUSH ONE (11:25)
[2018-04-03] MEDS ORDERED: Haloperidol INJ IV/IM* 5 MG/ML AMP ONE ×2 (11:28→11:40)
--- NOTE | 2018-04-03 11:36 | PN ---
Progress Note - Progress Note Date of Service: 04/03/18 - Femoral CVC placement Note: Procedure: Rt femoral Central Line Indication: Administration of IVF, blood products Anesthesia: 2% Lidocaine Procedure: Informed consent obtained from patients who is HCP as pt was confused and unable to provide consent. A time-out was completed, verifying correct patient, procedure, site, positioning. Patients right femoral area was prepped and draped in usual sterile fashion. 2% Lidocaine was used to anesthetize the area. A Triple lumen central line was introduced over a wire via the Seldinger technique, then sutured in place. Good blood flow was noted from all ports. The patient tolerated the procedure well. Complications: None Blood loss: Minimal
--- NOTE | 2018-04-03 12:25 | PRO ---
CC: Dr. Jagdeep Mckeon; Dr. Stephany Gresham, and Primary Care Physician.* PROCEDURE REPORT: DATE OF PROCEDURE: 04/03/18 INDICATION FOR PROCEDURE: Hematochezia in the setting of acute VT. PROCEDURE PERFORMED: Complete colonoscopy to the terminal ileum. MEDICATIONS GIVEN: None. DESCRIPTION OF PROCEDURE: After the colonoscopy procedure including the risks, benefits, and alternatives with the risks not limited to perforation, surgery, missed lesions, and/or were explained to both the patient and the healthcare proxy, the patient's , written informed consent was obtained from both the and the patient. The patient has mild dementia, so consent was obtained from 2 individuals. The procedure was done unsedated due to hypotension and acute VT. A rectal exam was performed, which revealed jonah red blood. The adult Olympus colonoscope was inserted into the patient's rectum and advanced very carefully to the entirety of the colon and into the cecal base. On the right side of the colon at the cecum, there was no evidence of fresh blood or old blood. I intubated the terminal ileum x5 to 10 cm and this was completely normal without any evidence of recent bleeding. On further withdrawal to the right side of the colon, there was residual stool which limited any detection of polyps or lesions; however, upon reaching the left side of the colon in the descending section and the sigmoid, moderate diverticulosis coli was seen with some old blood in the area. I did thoroughly wash these and the diverticulum. There was no evidence of active bleeding at this point. Upon further withdrawal towards the rectum, the old blood became more red in appearance leading to a suspicion that his may have been a rectal source or distal sigmoid. I extensively irrigated the area and washed over 30 plus minutes and cleaned, but was unable to find any active bleeding. At the conclusion of the procedure, I had thoroughly washed the entire rectum and sigmoid colon without evidence of active bleeding. On retroflection, he had small internal hemorrhoids. These were nonbleeding and noncontributory in nature. The scope was then removed from the patient. He tolerated the procedure well. He stayed in the ICU and in stable condition. IMPRESSION: 1. Complete colonoscopy to the terminal ileum. 2. Poor prep, but I was able to clean and inspect for blood. However, polyps and lesions may have been missed. 3. No blood on the right side of the colon. I suspect this is a left-sided bleed that is currently stopped. 4. Grade 1 internal hemorrhoids. 5. Left-sided diverticulosis coli, moderate. 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 Given his drop in hemoglobin, an arterial Dieulafoy is likely the only culprit that can produce that type of bleed. I did extensively inspect the rectal area and attempted to cause trauma with the scope to see if there was any possibility of getting it to bleed, but I was unable to locate a source despite multiple irrigation and inspection attempts. At this point, there is no evidence of active bleeding. He should be resuscitated via the ICU net technical architect team. In terms of anticoagulation for possible cardiac procedure, he is extremely high risk for rebleeding given I was unable to clearly identify a source. However, would not be against pursuing intervention with the understanding that we likely will have to do a repeat procedure to attempt the source which is likely in the left side of the colon. The risks and benefits can be discussed with the Cardiology team about pursuing additional intervention therapy for the patient. However, he is will be high risk for rebleeding. Again, the likely source is either a Dieulafoy lesion or a left-sided diverticulum in the distal sigmoid colon. [id number]/[facility] #: [id number] PATTIE
--- NOTE | 2018-04-03 13:11 | ECHO ---
Patient: ASHLEY BISHOP V [facility] Rec#: [id number] : 1935 Date: 04/03/2018 Age: 82y Height: 175 cm / 68.9 in Weight: 60.3 kg / 132.9 lbs Sex: M BSA: 1.7 Room#: ICU 9 Admit Date#: 04/02/2018 Type: Inpatient Referring: Jagdeep Mckeon MD Reading: Jagdeep Mckeon MD Belt Measurer: Shama Christiansen RN RDCS CC: Linda Amos MD Transthoracic Echocardiogram Indication: Myocardial infarction, murmur BP: 80/64 HR: 108 Rhythm: Tachycardia Findings History: HTN, CAD with PCI in the past Technical Comments: The study is technically limited due to the patient's smoking history. The study was technically limited due to the patient's inability to lay in the left lateral decubitus position. The patient was restless and unable to hold still for further imaging. Left Ventricle: The left ventricular chamber size is normal. There are multiple regional wall motion abnormalities. There is severely decreased left ventricular systolic function. The estimated ejection fraction is 25-30%. Severe shelley, anteroapical septal hypokinesis to akinesis. The posterolateral segments from the base to the mid LV appear hyperdynamic. There is an VSD noted in the distal inferoseptal segement. Abnormal left ventricular diastolic function is observed. The left ventricular diastolic filling pattern is consistent with pseudonormalization. The basal anteroseptal, basal anterior, basal inferior, basal inferoseptal, and apical inferior wall segments are hypokinetic (score 2). The mid anterior, mid inferoseptal, apical anterior, and apical lateral wall segments are akinetic (score 3). There is scarring/thinningof the mid anteroseptal, and apical septalwall segments (score 5). Overall wallmotion score index is 2.31 Left Atrium: The left atrial chamber size is normal. Right Ventricle: The right ventricle is not well visualized. The right ventricular cavity size is normal. The right ventricular global systolic function is moderately reduced. A ventricular septal defect is demonstrated by color Doppler. Right Atrium: The right atrial cavity size is normal. Aortic Valve: The aortic valve structure is not well visualized. The aortic valve leaflets are mildly thickened. There is no evidence of aortic regurgitation. Mitral Valve: The mitral valve leaflets are mildly thickened. There is a trace of mitral regurgitation. There is no evidence of mitral stenosis. Tricuspid Valve: The tricuspid valve structure is not well visualized. There is trace to mild tricuspid regurgitation. Unable to estimate the right ventricular systolic pressure. There is no tricuspid stenosis. Pulmonic Valve: The pulmonic valve structure is not well visualized. Pericardium: There is no significant pericardial effusion. Aorta: The ascending aorta is not well visualized. The aortic arch is not well visualized. There is no dilation of the aortic root. Pulmonary Artery: The main pulmonary artery is not well visualized. Venous: The venous system is not well visualized. The inferior vena cava is not visualized. Summary: There was not any prior study for comparison. Conclusions The study is technically limited due to the patient's smoking history. The study was technically limited due to the patient's inability to lay in the left lateral decubitus position. The patient was restless and unable to hold still for further imaging. There are multiple regional wall motion abnormalities. There is severely decreased left ventricular systolic function. The estimated ejection fraction is 25-30%. Severe anterior, anteroseptal, anteroapical, septal hypokinesis to akinesis. The posterolateral segments from the base to the mid LV appear hyperdynamic. There is an VSD noted in the distal inferoseptal segement. The left ventricular diastolic filling pattern is consistent with pseudonormalization. The right ventricular global systolic function is moderately reduced. There is a trace of mitral regurgitation. There is trace to mild tricuspid regurgitation. Measurements Name Value Normal Range RVDdMajor (2D) 3.4 cm (2.2 - 4.4) RAd ISD 4CH 4.2 cm (3.4 - 4.9) RA (A4C)W 4 cm (2.9 - 4.6) IVSd (2D) 1 cm (0.6 - 1) LVPWd (2D) 0.9 cm (0.6 - 1) LVIDd (2D) 3.8 cm (3.6 - 5.4) Aortic Annulus 2.2 cm (1.4 - 2.6) Ao root diameter (2D) 2.7 cm (2.1 - 3.5) LA dimension (AP) 2D 3.3 cm (2.3 - 3.8) LAd ISD 4CH 3.8 cm (2.9 - 5.3) LA ISD 4CH W 3.1 cm (2.5 - 4.5) Name Value Normal Range LA ESV BP (A/L) index 26.8 ml/m2 - Name Value Normal Range MV E-wave Vmax 1.1 m/sec - MV deceleration time 183 msec - MV A-wave Vmax 0.89 m/sec - MV E:A ratio 1.3 ratio - LV septal e' Vmax 0.09 m/sec - LV lateral e' Vmax 0.07 m/sec - LV E:e' septal ratio 12.2 ratio - LV E:e' lateral ratio 15.7 ratio - Name Value Normal Range AV Vmax 1.7 m/sec - AV VTI 34.5 cm - AV peak gradient 12 mmHg - AV mean gradient 7 mmHg - LVOT Vmax 0.58 m/sec - LVOT VTI 8.4 cm - LVOT peak gradient 1 mmHg - LVOT mean gradient 1 mmHg - Name Value Normal Range PV Vmax 0.85 m/sec - Wallmotion BAS Hypokinetic BA Hypokinetic BAL Normal DIMITRIOS Normal BI Hypokinetic BIS Hypokinetic MAS Scarring/Thinning MA Akinetic MAL Normal MIL Normal AZ Normal MIS Akinetic Scarring/Thinning AA Akinetic AL Akinetic AI Hypokinetic APEX Akinetic
[2018-04-03] MEDS ORDERED: Nitro Patch/OINT Remove TOPICAL SCH (14:00)
[2018-04-03] MEDS: LORazepam INJ* 2 MG/ML 1 ML VIAL IV PUSH PRN ×2 (15:23→16:14)
[2018-04-03] MEDS ORDERED: LORazepam INJ* 2 MG/ML 1 ML VIAL IV PUSH PRN (16:22)
[2018-04-03] MEDS ORDERED: LORazepam INJ* 2 MG/ML 1 ML VIAL IV PUSH SCH (17:00)
[2018-04-03] MEDS ORDERED: Atorvastatin* 40 MG TAB PO SCH (17:00)
[2018-04-03 18:03] VITALS: BP 80/40
[2018-04-03] MEDS ORDERED: Morphine VIAL* 4 MG/ML VIAL (1 ml vial) IV PRN (18:25)
[2018-04-03] MEDS: Pantoprazole IV* 40 MG IV SCH (19:06)
[2018-04-03] MEDS ORDERED: Atorvastatin* 20 MG TAB PO SCH (21:00)
--- NOTE | 2018-04-04 13:07 | DS ---
DISCHARGE/EXPIRATION SUMMARY: DATE OF ADMISSION: 04/02/18 DATE OF EXPIRATION: 04/03/18 TIME OF : 04/03/18 at 7:19 p.m. PRIMARY CARE PHYSICIAN: Linda Amos MD REASON FOR HOSPITAL ADMISSION: GI bleed. BRIEF SUMMARY OF HOSPITALIZATION: The patient was an 82-year-old male with a history of coronary artery disease, status post stent placement in the past, history of dementia, SC in 1988, had 90% right coronary stenosis treated with angioplasty. The patient also with PCI of LAD and left circumflex in 2003 and subsequent brachytherapy in 2004 to LAD, hypertension, prior tobacco use, history of GI bleed in 2010 with evidence of diverticulosis. He had upper GI series in December of 2017 for dysphagia and found to have small Zenker's diverticulum with unremarkable upper GI. The patient also had stenting in 2003 to LAD and circumflex and had repeat cardiac catheterization in June of 2004. He was found to have 80% stenosis of mid LAD and mild diffuse in-stent stenosis within the stent. Left circumflex without evidence of stenosis, ramus was patent, and right coronary was not injected, was found to be occluded at the prior catheterization. The patient was brought into the hospital by for evaluation of GI bleed. The patient was at a family event visiting [facility] in [place] when he found that his pants were wet and was found to have bright red blood. decided to drive him home. On the way home, there was a brief episode of loss of consciousness and was brought to the emergency room. His initial EKG did not show evidence of ischemia and troponin was also within normal limits. His hemoglobin continued to drop during the hospitalization. He also had recurrent bright red blood per rectum. The patient had elevated troponin. Subsequently, he was found to have elevated ST with acute STEMI. His troponins also more significantly elevated up to 13. Cardiology was consulted. Given ongoing GI bleed, he was not considered to be a candidate for catheterization and stent placement. The patient had GI evaluation with colonoscopy at bedside which revealed Dieulafoy lesion with old blood in the rectum. The patient did not have any evidence of bleeding from the right colon. No other significant abnormalities were noted. Echocardiogram showed evidence of severe systolic dysfunction and ventricular septal defect. The patient was hypotensive and received 2 units of PRBC and also received IV fluids. His respiratory status was stable. He continued to remain hypotensive, however. The patient's and daughter were at bedside and were making decisions for the patient who was confused at times due to underlying dementia. The patient continued to deteriorate. Family expressed that the patient's wishes were not to have artificial measures and aggressive interventions. The patient's daughter and requested comfort care measures given the fact that the patient's condition precludes cardiac catheterization or even coronary artery bypass grafting surgery given the concern with the GI bleed. They have made decision to allow the patient to be comfortable. He has been receiving Ativan and morphine p.r.n. The patient continued to deteriorate and in the ICU with family at bedside around 7:19 p.m. DIAGNOSTIC TESTING DURING THE HOSPITALIZATION: Includes labs suggestive of elevated creatinine at 1.36, lactic acid elevated at 2.7, troponins with a peak of 13. White count was mildly elevated at 12. Chest x-ray did not show any significant abnormality. CT of the abdomen showed no acute findings. Echocardiogram showed evidence of severely decreased ejection fraction and evidence of ventricular septal defect. Colonoscopy showed evidence of Dieulafoy lesion, old blood in the rectum and left colon. TIME SPENT: Sixty minutes spent with managing the patient with multiple visits throughout the day and also completion of the discharge summary. [id number]/[facility] #: [id number] MTDD
== END 2018-04-03 19:13 | disposition expired ==
LOC: ED 19:35 → MEDTELE 20:43 → ICU 04-03 04:25 → OBSVTOIN 04-03 10:34
PROVIDERS: ADMIT Internal Medicine; ATTEND Internal Medicine
PROC: 30233N1 Transfusion of Nonautologous Red Blood Cells into Peripheral Vein, Percutaneous Approach (ICD-10-PCS; principal; 2018-04-03)
PROC: 06HM33Z Insertion of Infusion Device into Right Femoral Vein, Percutaneous Approach (ICD-10-PCS; 2018-04-03)
PROC: 0DJD8ZZ Inspection of Lower Intestinal Tract, Via Natural or Artificial Opening Endoscopic (ICD-10-PCS; 2018-04-03)
DX: I21.09 ST elevation (STEMI) myocardial infarction involving other coronary artery of anterior wall (principal); K57.31 Diverticulosis of large intestine without perforation or abscess with bleeding; K63.81 Dieulafoy lesion of intestine; R65.10 Systemic inflammatory response syndrome (SIRS) of non-infectious origin without acute organ dysfunction; D62 Acute posthemorrhagic anemia; Q21.0 Ventricular septal defect; K92.1 Melena; I95.89 Other hypotension; E83.51 Hypocalcemia; I11.9 Hypertensive heart disease without heart failure; F03.90 Unspecified dementia, unspecified severity, without behavioral disturbance, psychotic disturbance, mood disturbance, and anxiety; E78.5 Hyperlipidemia, unspecified; Z66 Do not resuscitate; E87.6 Hypokalemia; I25.119 Atherosclerotic heart disease of native coronary artery with unspecified angina pectoris; E53.8 Deficiency of other specified B group vitamins; K57.30 Diverticulosis of large intestine without perforation or abscess without bleeding; K64.0 First degree hemorrhoids; K22.5 Diverticulum of esophagus, acquired; Z87.891 Personal history of nicotine dependence; Z95.5 Presence of coronary angioplasty implant and graft; Z79.1 Long term (current) use of non-steroidal anti-inflammatories (NSAID); Z79.899 Other long term (current) drug therapy; Z88.0 Allergy status to penicillin; Z80.42 Family history of malignant neoplasm of prostate; Z82.49 Family history of ischemic heart disease and other diseases of the circulatory system; Z80.51 Family history of malignant neoplasm of kidney; Z88.2 Allergy status to sulfonamides; Z88.8 Allergy status to other drugs, medicaments and biological substances
CPT/HCPCS: 36415; 71045; 74177; 80048; 80053; 80061; 81003; 82607; 83605; 84439; 84443; 84484; 85014; 85018; 85025; 85610; 85730; 86850; 86900; 86901; 86922; 87040; 87641; 93005; 93306; 99283; A9270-GY; J0610; J1630; J2060; J2270; J3480; J3490; P9040; Q9967